=== PATIENT | female | born 1975 | race Caucasian/White ===

== ENCOUNTER → 2018-01-23 | Outpatient (CLI) | payer OTHER ==
[~2018-01-23] MED LIST: AZAT50TA9 PO; BIOT25005 PO; CHOL100012 PO; GADOBUTROL 7.5 MMOL/7.5 ML PFS ONE; LEVO1TAB29 PO; LISI-167 PO; LYSI500T25 PO; POTASSIUM PO; VITAMIN B12 PO
== END | disposition home or self-care (01) ==
LOC: RAD 13:08
DX: K80.20 Calculus of gallbladder without cholecystitis without obstruction (principal); N28.1 Cyst of kidney, acquired; K60.3 Anal fistula; R74.8 Abnormal levels of other serum enzymes; R94.5 Abnormal results of liver function studies; Z90.49 Acquired absence of other specified parts of digestive tract
CPT/HCPCS: 72197; 74181; A9585

== ENCOUNTER 2018-03-28 10:51 | Day surgery (SDC) | payer OTHER ==
[~2018-03-28] VITALS: Ht 172.7 cm; Wt 60.0 kg
[~2018-03-28 10:51] MED LIST changes: -GADOBUTROL 7.5 MMOL/7.5 ML PFS ONE
[2018-03-28] MEDS ORDERED: LACTATED RINGERS 1,000 ML IV SCH (11:15)
[2018-03-28 11:16] VITALS: BP 109/72
[2018-03-28] MEDS ORDERED: SUCCINYLCHOLINE 20 MG/ML, 10ML ONE (13:39)
[2018-03-28] MEDS ORDERED: FENTANYL PF 100 MCG/2ML ONE (13:39)
[2018-03-28] MEDS ORDERED: MIDAZOLAM 1 MG/ML, 2ML ONE (13:39)
[2018-03-28] MEDS ORDERED: PROPOFOL 10 MG/ML, 20ML ONE (13:40)
[2018-03-28] MEDS ORDERED: ONDANSETRON 2MG/ML, 2ML ONE (14:08)
[2018-03-28] MEDS ORDERED: DEXAMETHASONE 4 MG/ML, 1ML ONE ×2 (14:08)
[2018-03-28] MEDS ORDERED: hydrALAzine 20 MG/ML, 1ML IV PRN (14:30)
[2018-03-28] MEDS ORDERED: FENTANYL PF 100 MCG/2ML IV PRN (14:30)
[2018-03-28] MEDS ORDERED: DIPHENHYDRAMINE 50 MG/ML, 1ML IVPush PRN (14:30)
[2018-03-28] MEDS ORDERED: LABETALOL 5MG/ML, 20ML IV PRN (14:30)
[2018-03-28] MEDS ORDERED: EPHEDRINE 50 MG/ML, 1ML IVPush PRN (14:30)
[2018-03-28] MEDS ORDERED: ACETAMINOPHEN 325 MG TABLET PO PRN (14:30)
[2018-03-28] MEDS ORDERED: OXYcodone 5 MG/5 ML ORAL.SOL UDC PO PRN (14:30)
[2018-03-28] MEDS ORDERED: MORPHINE SULFATE 4 MG/ML, 1ML IVPush PRN (14:30)
[2018-03-28] MEDS ORDERED: ALBUTEROL SULFATE 2.5 MG/3 ML NPPB PRN (14:30)
[2018-03-28] MEDS ORDERED: PROCHLORPERAZINE 5 MG/ML, 2ML IV PRN (14:30)
[2018-03-28] MEDS ORDERED: METOPROLOL 1 MG/ML, 5ML IV PRN (14:30)
[2018-03-28] MEDS ORDERED: HYDROmorphone 2 MG/ML, 1ML IV PRN (14:30)
[2018-03-28] MEDS ORDERED: OMNIPAQUE 350 MG/ML, 50 ML BOTTLE ONE (14:31)
== END 2018-03-28 16:15 | disposition home or self-care (01) ==
LOC: OUT 10:51
DX: K80.51 Calculus of bile duct without cholangitis or cholecystitis with obstruction (principal); K50.90 Crohn's disease, unspecified, without complications; Z79.899 Other long term (current) drug therapy; Z88.1 Allergy status to other antibiotic agents; Z88.8 Allergy status to other drugs, medicaments and biological substances
CPT/HCPCS: 43277; 74328; 88104; 88112; C1769; J0330; J1100; J2250; J2405; J2704; J3010; Q9967